=== PATIENT | female | born 1990 | race Caucasian/White ===

== ENCOUNTER 2018-05-14 06:50 | Emergency (ER) | payer OTHER ==
--- NOTE | 2018-05-14 11:52 | ER Document Report ---
ED General - General Mode of Arrival: Ambulatory Information source: Patient TRAVEL OUTSIDE OF THE [place] IN LAST 30 DAYS: No <NANI HAYDEN - Last Filed: 05/14/18 14:40> <AL DEWEY - Last Filed: 05/15/18 06:28> - General Chief Complaint: Shortness Of Breath Stated Complaint: SHORTNESS OF BREATH Time Seen by Provider: 05/14/18 11:07 Notes: Patient is a 27-year-old female who presents to the emergency department today with complaints of a heart racing sensation with associated shortness of breath that began this morning while in the shower. Patient states the shower was not overly hot or overly cold, it was a normal shower. Patient states her symptoms stopped approximately 30 minutes after arrival here and she is currently asymptomatic. Patient states she did travel to [place] 2 weeks ago but denies a history of cancer, leg swelling, chest pain, history of PE/DVT, usage of hormones, hemoptysis, or family history of sudden cardiac . (NANI HAYDEN) She denied surgery or travel within 4 weeks or required hospitalization or intubation (AL DEWEY) - Related Data Allergies/Adverse Reactions: No Known Allergies Allergy (Verified 05/14/18 08:46) Past Medical History - General Information source: Patient - Social History Smoking Status: Former Smoker Frequency of alcohol use: None Drug Abuse: None Family History: Reviewed & Not Pertinent Patient has suicidal ideation: No Patient has homicidal ideation: No Renal/ Medical History: Denies: Hx Peritoneal Dialysis Surgical Hx: Negative <NANI HAYDEN - Last Filed: 05/14/18 14:40> Review of Systems - Review of Systems Constitutional: No symptoms reported EENT: No symptoms reported Cardiovascular: See HPI, Heart racing. denies: Chest pain Respiratory: See HPI, Short of breath Gastrointestinal: No symptoms reported Genitourinary: No symptoms reported Female Genitourinary: No symptoms reported Musculoskeletal: denies: Leg swelling Skin: No symptoms reported Hematologic/Lymphatic: No symptoms reported Neurological/Psychological: No symptoms reported -: Yes All other systems reviewed and negative <NANI HAYDEN - Last Filed: 05/14/18 14:40> Physical Exam <NANI HAYDEN - Last Filed: 05/14/18 14:40> <AL DEWEY - Last Filed: 05/15/18 06:28> - Vital signs Vitals: Temp Pulse Resp BP Pulse Ox 98.1 F 70 20 140/81 H 100 05/14/18 06:58 05/14/18 06:58 05/14/18 06:58 05/14/18 06:58 05/14/18 06:58 - Notes Notes: Physical Exam: General: Alert, appears well. HEENT: Normocephalic. Atraumatic. PERRL. Extraocular movements intact. Oropharynx clear. Neck: Supple. Non-tender. Respiratory: No respiratory distress. Clear and equal breath sounds bilaterally. Cardiovascular: Regular rate and rhythm. Abdominal: Normal Inspection. Non-tender. No distension. Normal Bowel Sounds. Back: Non-tender. No deformity or step off. Extremities: Moves all four extremities. Upper extremities: Normal inspection. Normal ROM. Lower extremities: Normal inspection. No edema. Normal ROM. Neurological: Normal cognition. AAOx4. Normal speech. Psychological: Normal affect. Normal Mood. Skin: Warm. Dry. Normal color. (NANI HAYDEN) Course <NANI HAYDEN - Last Filed: 05/14/18 14:40> - EKG Interpretation by Fl EKG shows normal: Sinus rhythm Rate: Normal Rhythm: NSR <AL DEWEY - Last Filed: 05/15/18 06:28> - Re-evaluation Re-evalutation: 05/14/18 12:00 Patient well-appearing in no acute distress with normal vitals. PERC negative. Patient has clear lungs no crackles or wheezing. Patient had transient shortness of breath while getting out of shower states she felt she worked herself up and felt her heart racing fast. She does not have any medical problems. Her exam does not reveal any thyroid nodule and large thyroid as well. EKG shows no concerning findings. No history of unexplained sudden in the family. She states she has been having a lump in her throat with sour taste in her throat at times as well over the last several weeks. We will treat her symptoms as more of esophageal spasm and. Will have her follow-up with pending sale to [facility] if symptoms are not improving or sooner in the emergency department for any other concerns (AL DEWEY) - Vital Signs Vital signs: Temp Pulse Resp BP Pulse Ox 98.6 F 62 16 116/85 100 05/14/18 12:00 05/14/18 08:45 05/14/18 12:00 05/14/18 12:00 05/14/18 12:00 Discharge <NANI HAYDEN - Last Filed: 05/14/18 14:40> <AL DEWEY - Last Filed: 05/15/18 06:28> - Discharge Clinical Impression: Sensation of lump in throat, SOB (shortness of breath) Condition: Good Disposition: HOME, SELF-CARE Additional Instructions: Take medications as prescribed and follow-up with community clinic in the next 7 -14 days for reevaluation. Return to the emergency department sooner if symptoms persist Prescriptions: Ranitidine HCl [Zantac] 150 mg PO BID #60 tablet Referrals: [facility] [NO LOCAL MD] - Follow up as needed (In 7-10 day for re- evaluation) Scribe Attestation: 05/15/18 06:28 I personally performed the services described documentation, reviewed and edited the documentation which was dictated to describe my presence, and it accurately records my words and actions. (AL DEWEY) Scribe Documentation - Scribe Written by Scribe:: Lisbet Corrales, 05/14/2018 1429 acting as scribe for :: Nicola <NANI HAYDEN - Last Filed: 05/14/18 14:40>
[2018-05-14 12:12] VITALS: BP 116/85
--- NOTE | 2018-05-15 07:41 | EKG REPORT ---
SEVERITY:- NORMAL ECG - SINUS RHYTHM : Confirmed by: Maggie Acuna MD 15-May-2018 07:39:43
== END 2018-05-14 12:12 | disposition home or self-care (01) ==
LOC: ER 06:50
DX: R22.1 Localized swelling, mass and lump, neck (principal); R06.02 Shortness of breath; Z87.891 Personal history of nicotine dependence
CPT/HCPCS: 93005; 93010; 99285

== ENCOUNTER 2018-07-21 01:50 | Emergency (ER) | payer OTHER ==
[2018-07-21 02:03] VITALS: BP 130/84
[2018-07-21] MEDS ORDERED: DIAZEPAM INJ 10 MG/2 ML DISP.SYRIN IM ONE (02:42)
--- NOTE | 2018-07-21 02:45 | ER Document Report ---
HPI - HPI Patient complains to provider of: Upper back pain Pain Level: 4 Context: Patient is a 27-year-old female that comes to the emergency department for chief complaint of difficulty sleeping secondary to pain, stiffness, soreness in her upper back both on the left and the right side but mainly on the right. She states this has been going on worsening for the past 3 days, she states she thinks that she pulled a muscle while she was working out with weights the other day. She denies any impact injury, she states she felt tingling in her hand once or twice but none now. She denies any fever or chills, history of IV drug abuse, history of the same. Denies shortness of breath, chest pain, dizziness. Denies headache. She denies any daily medications. She states she was prescribed naproxen and prednisone yesterday by urgent care but tonight with difficulty sleeping she decided to come get evaluated here. LMP within the past month. Past Medical History - General Information source: Patient - Social History Smoking Status: Never Smoker Drug Abuse: None Lives with: Family Family History: Reviewed & Not Pertinent - Medical History Medical History: Negative Renal/ Medical History: Denies: Hx Peritoneal Dialysis Surgical Hx: Negative - Immunizations Immunizations up to date: Yes Hx Diphtheria, Pertussis, Tetanus Vaccination: Yes Vertical Provider Document - CONSTITUTIONAL General Appearance: WD/WN, No Apparent Distress - INFECTION CONTROL TRAVEL OUTSIDE OF THE [place] IN LAST 30 DAYS: No - HEENT HEENT: Atraumatic, Normal ENT Exam, Normocephalic - NECK Neck: Normal Inspection - RESPIRATORY Respiratory: Breath Sounds Normal, No Respiratory Distress - CARDIOVASCULAR Cardiovascular: Regular Rate, Regular Rhythm - GI/ABDOMEN Gastrointestinal: Abdomen Soft, Abdomen Non-Tender - BACK Back: negative: Normal Inspection - There is tenderness mainly over the right trapezius musculature and slightly on the left as well. No midline tenderness, no saddle anesthesia, no signs of trauma. Normal upper and lower extremity range of motion, normal strength, normal distal neurovascular exam. - MUSCULOSKELETAL/EXTREMETIES Musculoskeletal/Extremeties: MAEW, FROM, Non-Tender - NEURO Level of Consciousness: Awake, Alert, Appropriate - DERM Integumentary: Warm, Dry, No Rash Course - Re-evaluation Re-evalutation: Physical examination shows tenderness of the trapezius musculature, mainly on the right. Patient has wincing with palpation. Remaining examination is unremarkable with no midline tenderness, no neurological deficits. Patient reporting strain with weightlifting. Given dose of diazepam here for muscular spasm. Discussed her naproxen and prednisone as well as risk factors of taking both of them, decision was made to place her on naproxen and Flexeril instead of prednisone, cast recommendations, follow-up, and return precautions. Patient states understanding and agreement. - Vital Signs Vital signs: Temp Pulse Resp BP Pulse Ox 98.2 F 60 20 130/84 H 100 07/21/18 02:01 07/21/18 02:01 07/21/18 02:01 07/21/18 02:01 07/21/18 02:01 Discharge - Discharge Clinical Impression: Upper back pain, Muscle spasm Trapezius muscle strain Qualifiers: Encounter type: initial encounter Laterality: right Qualified Code(s): S46.811A - Strain of other muscles, fascia and tendons at shoulder and upper arm level, right arm, initial encounter Condition: Stable Disposition: HOME, SELF-CARE Additional Instructions: Your examination is consistent with trapezius muscle strain and spasm. Stop the prednisone. Take the Naprosyn during the day with food, consider Pepcid or Zantac to avoid stomach irritation after taking both prednisone and naproxen. Take the cyclobenzaprine muscle relaxer at night. Apply heat, do gentle stretches, this should resolve with time. Follow-up with primary care. Return for any concerning symptoms including severe pain, numbness, difficulty breathing, severe headache, or any other concerning or worsening symptoms. Prescriptions: Cyclobenzaprine HCl [Flexeril 5 mg Tablet] 1 - 2 tab PO TID PRN #15 tablet PRN Reason: Referrals: CLARE KU PA-C [Primary Care Provider] - Follow up as needed
== END 2018-07-21 03:11 | disposition home or self-care (01) ==
LOC: ER 01:50
DX: S46.811A Strain of other muscles, fascia and tendons at shoulder and upper arm level, right arm, initial encounter (principal); M54.6 Pain in thoracic spine; M62.838 Other muscle spasm; R20.0 Anesthesia of skin; X58.XXXA Exposure to other specified factors, initial encounter
CPT/HCPCS: 99283; 96372; J3360